=== PATIENT | male | born 1960 | race Two or more races ===

== ENCOUNTER 2024-09-29 17:17 | Emergency (ER) | payer MEDICAID, OTHER ==
[~2024-09-29] VITALS: Ht 185.4 cm; Wt 83.0 kg
[2024-09-29 17:43] LABS: Basophils # (auto) 0 10 ^3/uL (0-0.2); Basophils % (auto) 0.8 % (0.0-2.0); Eosinophils # (auto) 0 10 ^3/uL (0-0.8); Eosinophils % (auto) 0.8 % (0.0-7.0); Hematocrit 44.4 % (41.0-53.0); Lymphocytes # (auto) 1.7 10 ^3/uL (0.4-5.4); Lymphocytes % (auto) 28.1 % (10.0-50.0); Mean Corpuscular Hgb Conc. 33.8 g/dL (32.0-36.0); Mean Corpuscular Volume 94.7 fL (80.0-100.0); Monocytes # (auto) 0.5 10 ^3/uL (0-1.3); Monocytes % (auto) 7.6 % (0.0-12.0); Neutrophils # (auto) 3.9 10 ^3/uL (1.6-8.6); Neutrophils % (auto) 62.7 % (37.0-80.0); Nucleated Red Blood Cells % 0.1 %; Platelet Count (auto) 245 10^3/uL (140-450); Red Blood Cells 4.69 10^6/uL (4.5-5.90); White Blood Cell 6.2 10^3/uL (4.4-10.8)
[2024-09-29 18:06] LABS: Alanine Aminotransferase 40 U/L (7-40); Alkaline Phosphatase 81 U/L (46-116); Anion Gap 7 (5-15); BUN/Creatinine Ratio 22.5 (10.0-20.0); Blood Urea Nitrogen 23 mg/dL (9-23); Carbon Dioxide 29 mmol/L (20-31); Chloride 106 mmol/L (98-107); Glucose 100 mg/dL (74-106); Magnesium 2.3 mg/dL (1.6-2.6); Potassium 4.2 mmol/L (3.5-5.1); Sodium 142 mmol/L (136-145)
[2024-09-29 18:07] LABS: Aspartate Aminotransferase 19 U/L (13-40); Bilirubin, Total 0.5 mg/dL (0.2-1.0); Total Protein 7.1 g/dL (5.7-8.2)
[2024-09-29 18:08] LABS: Albumin 4.9 g/dL (3.2-4.8)
--- NOTE | 2024-09-29 19:10 | DVH ---
CHEST RADIOGRAPH Indication: CP Technique: Single frontal view of the chest was obtained COMPARISON: None FINDINGS: Lines and Tubes: None Lungs: Clear Pleura: No effusion. No pneumothorax. Cardiomediastinal contours: Unremarkable Bones: Unremarkable IMPRESSION: 1. No acute disease.
--- NOTE | 2024-09-29 20:45 | ED.PDOC ---
HPI Comments 63 y.o male presents to the ED for a chief complaint of left sided chest pain associated with SOB, nausea and vomiting that started today. Patient reports waking up with heart burn that progressively worsened and turned into an achy sensation to the left sided chest, non radiating and constant. Patient mentions vomiting multiple times around 1530 with no hematemesis noted. At this time of assessment patient denies CP or sob, nausea or vomiting but still has a mild achy sensation in the LUQ. He denies taking any medication at home. No cardiac history or social history such as tobacco user. Chief Complaint: Chest Pain Time Seen by MD: 20:24 Primary Care Provider: none Reviewed Notes: Nurses Notes, Medications, Allergies Allergies: Coded Allergies: Penicillins (Verified Allergy, Unknown, 09/29/24) Home Meds Active Scripts Acetaminophen (Tylenol Extra Strength) 500 Mg Tab, 1000 MG PO Q6HP PRN, #30 TAB prn pain Prov:PRAVEEN HARMON MD 09/29/24 Omeprazole Magnesium (Omeprazole) 20 Mg Tab, 20 MG PO DAILY, #30 TAB Prov:PRAVEEN HARMON MD 09/29/24 Ondansetron Odt 4MG Tab (ZOFRAN PO) 4 Mg Tb, 4 MG PO TID PRN, #20 TAB prn nausea/vomiting ODT TAB-DISSOLVE IN MOUTH, THEN SWALLOW Prov:PRAVEEN HARMON MD 09/29/24 Information Source: Patient Mode of Arrival: Ambulatory Severity: Moderate Timing: Hours Duration: Since onset Location: Substernal Radiation: No Radiation Quality: Burning, Aching Onset: At Rest Cardiac Risk Factors: None PE Risk Factors: None History of: None Modifying Factors: Nothing Associated Signs and Symptoms: SOB, N/V Past Medical History PAST MEDICAL HISTORY: Thyroid Past Medical History (Other): Wvuokgx-Qtpfx-Uxnxk disease Surgical History: Denies all surgeries Family History Family History: Reviewed,noncontributory to illness, No family hx of Heart ashwini Social History Smoker: Non-Smoker Alcohol: Denies ETOH Use Drugs: Denies Drug Use Lives In: Home Constitutional: denies: chills, diaphoresis, fatigue, fever, malaise, sweats, weakness, others EENTM: denies: blurred vision, double vision, ear bleeding, ear discharge, ear drainage, ear pain, ear ringing, eye pain, eye redness, hearing loss, mouth pain, mouth swelling, nasal discharge, nose bleeding, nose congestion, nose pain, photophobia, tearing, throat pain, throat swelling, voice changes, others Respiratory: reports: SOB at rest, shortness of breath, SOB with excertion; denies: cough, hemoptysis, orthopnea, stridor, wheezing, others Cardiovascular: reports: chest pain; denies: dizzy spells, diaphoresis, Dyspnea on exertion, edema, irregular heart beat, left arm pain, lightheadedness, palpitations, PND, syncope, others Gastrointestinal: reports: nausea, vomiting; denies: abdomen distended, abdominal pain, blood streaked bowels, constipated, diarrhea, dysphagia, difficulty swallowing, hematemesis, melena, poor appetite, poor fluid intake, rectal bleeding, rectal pain, others Genitourinary: denies: burning, dysuria, flank pain, frequency, hematuria, incontinence, penile discharge, penile sore, pain, testicle pain, testicle swelling, urgency, others Neurological: denies: dizziness, fainting, headache, left sided numbness, left sided weakness, numbness, paresthesia, pre-existing deficit, right sided numbness, right sided weakness, seizure, speech problems, tingling, tremors, weakness, others Musculoskeletal: denies: back pain, gout, joint pain, joint swelling, muscle pain, muscle stiffness, neck pain, others Integumetry: denies: bruises, change in color, change in hair/nails, dryness, laceration, lesions, lumps, rash, wounds, others Allergic/Immunocompromised: denies: Difficulty Healing, Frequent Infections, Hives, Itching, others Hematologic/Lymphatic: denies: anemia, blood clots, easy bleeding, easy bruising, swollen glands, others Endocrine: denies: excessive hunger, excessive sweating, excessive thirst, excessive urination, flushing, intolerance to cold, intolerance to heat, unexplained weight gain, unexplained weight loss, others Psychiatric: denies: anxiety, bipolar disorder, depression, hopeless, panic disorder, schizophrenia, sleepless, suicidal, others All Other Systems: Reviewed and Negative Physical Exam General Appearance: No Apparent Distress HEENT: Other (Pupils symmetric, no facial asymmetry, moist mucous membranes) Neck: Full Range of Motion, Normal Inspection Respiratory: Lungs Clear, No Accessory Muscle Use, No Respiratory Distress, Normal Breath Sounds Cardiovascular: No Edema, No JVD, Regular Rate/Rhythm Breast Exam: Deferred Gastrointestinal: Non Tender, Soft Genitalia: Deferred Pelvic: Deferred Rectal: Deferred Extremities: Normal inspection, Normal range of motion, Non-tender, No pedal edema Neurologic: Alert (Oriented x4), Normal Affect, Normal Mood, NOT DONE (Ambulatory without difficulty. No gross focal deficit.) Cerebellar Function: NOT DONE Reflexes: NOT DONE Skin: Dry, Normal Color, Warm Lymphatic: NOT DONE EKG EKG : Comments Sinus rhythm, rate 71, normal intervals, borderline left axis, normal QRS, nonspecific T change. Was a procedure done? Was a procedure done?: No CP Differential Dx Differential Diagnosis: Angina, DC Differential Diagnosis: CHF Differential Diagnosis: Angina, Chest Wall Pain, Cholelithiasis, Costochondritis, Esophageal reflux/spasm, Gastritis, Myocardial Infarction X-Ray, Labs, Meds, VS Vital Signs Date Time Temp Pulse Resp B/P (MAP) Pulse Ox O2 Delivery O2 Flow Rate FiO2 09/29/24 21:45 79 19 97 Room Air* 0 21 09/29/24 21:43 98.1 70 19 137/81 (99) 99 98.1 09/29/24 18:06 68 09/29/24 18:06 68 09/29/24 17:33 99.0 72 17 142/98 (113) 97 09/29/24 17:25 71 Lab Test 09/29/24 20:53 09/29/24 18:33 09/29/24 17:30 Range/Units Troponin I High Sensitivity < 3 L < 3 L < 3 L </=54 ng/L White Blood Count 6.2 4.4-10.8 10^3/uL Red Blood Count 4.69 4.5-5.90 10^6/uL Hemoglobin 15.0 13.5-17.5 g/dL Hematocrit 44.4 41.0-53.0 % Mean Corpuscular Volume 94.7 80.0-100.0 fL Mean Corpuscular Hemoglobin 32.0 28.0-32.0 pg Mean Corpuscular Hemoglobin Concent 33.8 32.0-36.0 g/dL Red Cell Distribution Width 13.0 11.8-14.3 % Platelet Count 245 140-450 10^3/uL Mean Platelet Volume 8.1 6.9-10.8 fL Neutrophils (%) (Auto) 62.7 37.0-80.0 % Lymphocytes (%) (Auto) 28.1 10.0-50.0 % Monocytes (%) (Auto) 7.6 0.0-12.0 % Eosinophils (%) (Auto) 0.8 0.0-7.0 % Basophils (%) (Auto) 0.8 0.0-2.0 % Neutrophils # (Auto) 3.9 1.6-8.6 10 ^3/uL Lymphocytes # (Auto) 1.7 0.4-5.4 10 ^3/uL Monocytes # (Auto) 0.5 0-1.3 10 ^3/uL Eosinophils # (Auto) 0 0-0.8 10 ^3/uL Basophils # (Auto) 0 0-0.2 10 ^3/uL Nucleated Red Blood Cells 0.1 % Sodium Level 142 136-145 mmol/L Potassium Level 4.2 3.5-5.1 mmol/L Chloride Level 106 98-107 mmol/L Carbon Dioxide Level 29 20-31 mmol/L Anion Gap 7 5-15 Blood Urea Nitrogen 23 9-23 mg/dL Creatinine 1.02 0.700-1.30 mg/dL Glomerular Filtration Rate Calc 84 >90 mL/min BUN/Creatinine Ratio 22.5 H 10.0-20.0 Serum Glucose 100 74-106 mg/dL Calcium Level 10.0 8.7-10.4 mg/dL Magnesium Level 2.3 1.6-2.6 mg/dL Total Bilirubin 0.5 0.2-1.0 mg/dL Aspartate Amino Transferase (AST) 19 13-40 U/L Alanine Aminotransferase (ALT) 40 7-40 U/L Alkaline Phosphatase 81 46-116 U/L B-Type Natriuretic Peptide 11.90 0-100 pg/mL Total Protein 7.1 5.7-8.2 g/dL Albumin 4.9 H 3.2-4.8 g/dL Current Medications Medications (Trade) Dose Ordered Sig/Maximino Route Start Time Stop Time Status Last Admin Lidocaine HCl (Xylocaine 2% Viscous) 10 ml ONCE ONCE PO 09/29/24 21:00 09/29/24 21:01 DC 09/29/24 21:43 Belladonna Alkaloids/ Phenobarbital ( Elixir) 10 ml ONCE ONCE PO 09/29/24 21:00 09/29/24 21:01 DC 09/29/24 21:42 Al Hydrox/Mg Hydrox/Simethicone (Maalox Plus) 30 ml ONCE ONCE PO 09/29/24 21:00 09/29/24 21:01 DC 09/29/24 21:42 PROCEDURE(s): CXRP - CHEST PORTABLE REASON: CP ORDER NUMBER(s): [id number], ACCESSION NUMBER(s): [id number] CHEST RADIOGRAPH Indication: CP Technique: Single frontal view of the chest was obtained COMPARISON: None FINDINGS: Lines and Tubes: None Lungs: Clear Pleura: No effusion. No pneumothorax. Cardiomediastinal contours: Unremarkable Bones: Unremarkable IMPRESSION: 1. No acute disease. 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 EKGs sinus rhythm, nonspecific T changes Chest x-ray unremarkable CBC, metabolic panel, BNP and 2 serial troponins unremarkable for any abnormality of acute significance Patient treated with the following in the ED: 1 L 0.9 normal saline IV bolus, Zofran 4 mg IV, viscous lidocaine 10 mL p.o., 10 mL p.o., Maalox 30 mL p.o. On re-evaluation, patient states nausea and pain have resolved. Vitals were stable. Hospitalization was considered, however patient had rapid improvement of his symptoms with treatment in the ED, cardiac workup is unremarkable, and I no longer feel hospitalization is necessary. Patient now per stable for discharge with close outpatient follow up with his primary physician for referral to a director of strategic sourcing. Rx Zofran, omeprazole Time of 1ST Reevaluation: 20:41 Reevaluation 1ST: Unchanged Time of 2ND Reevaluation: 21:11 Reevaluation 2ND: Improved Patient Education/Counseling: Diagnosis, Treatment, Prognosis Family Education/Counseling: No Family Present Departure 1 Departure Time of Disposition: 21:11 Impression: Primary Impression: Chest pain with low risk for cardiac etiology Additional Impressions: Nausea and vomiting Qualified Codes: R11.2 - Nausea with vomiting, unspecified Acid reflux Qualified Codes: K21.9 - Gastro-esophageal reflux disease without esophagitis Disposition: HOME / SELF CARE / HOMELESS Condition: Stable Additional Instructions: Your blood tests, including screening test for heart attack and heart failure were unremarkable. Your chest x-ray was normal. Your EKG was unremarkable. I have prescribed medication for your symptoms. Follow up with your primary doctor in 1-2 days for referral to a director of strategic sourcing for further evaluation. e-Prescriptions Acetaminophen (Tylenol Extra Strength) 500 Mg Tab 1000 MG PO Q6HP PRN, #30 TAB prn pain Prov: PRAVEEN HARMON MD 09/29/24 Omeprazole Magnesium (Omeprazole) 20 Mg Tab 20 MG PO DAILY, #30 TAB Prov: PRAVEEN HARMON MD 09/29/24 Ondansetron Odt 4MG Tab (ZOFRAN PO) 4 Mg Tb 4 MG PO TID PRN, #20 TAB prn nausea/vomiting ODT TAB-DISSOLVE IN MOUTH, THEN SWALLOW Prov: PRAVEEN HARMON MD 09/29/24 Discharged With: Spouse Critical Care Note Critical Care Time?: No Stability Stability form required: No Heart Score Heart Score: Heart Score Response (Comments) Value History Slightly Suspicious 0 EKG Repolarization Disturb 1 Age 45-64 1 Risk Factors No known risk factors 0 Troponin Normal limit 0 Total 2 I personally scribed for PRAVEEN HARMON MD ([facility]) on 09/29/24 at 20:44. Electronically submitted by Shamika Giang ([facility]). I personally scribed for PRAVEEN HARMON MD ([facility]) on 09/29/24 at 21:47. Electronically submitted by Shamika Giang ([facility]). PRAVEEN HARMON MD Sep 29, 2024 20:44
[2024-09-29] MEDS ORDERED: ACET-1304 PO (21:15)
[2024-09-29] MEDS ORDERED: ZOFR4T PO (21:15)
[2024-09-29] MEDS ORDERED: OMEP-434 PO (21:15)
[2024-09-29] MEDS: ONDANSETRON HCL 4 MG/2 ML VIAL IV ONE (21:38)
[2024-09-29] MEDS: SODIUM CHLORIDE 0.9% 1,000 ML IV ONE (21:38)
[2024-09-29] MEDS: DONNATAL 5ml ORAL Elix (BELLADONNA ALK-PHENOBARB) PO ONE (21:42)
[2024-09-29] MEDS: MAALOX PLUS or MAALOX 30 ML PO ONE (21:42)
[2024-09-29 21:43] VITALS: BP 137/81; TEMP 98.1
[2024-09-29] MEDS: LIDOCAINE VISCOUS 2% 15ML UD PO ONE (21:43)
[2024-09-29 21:45] VITALS: PULSE 79; RESP 19; O2SAT 97
--- NOTE | 2024-09-30 01:37 | ECG ---
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
== END 2024-09-29 21:53 | disposition home or self-care (01) ==
LOC: ER 17:17
DX: R07.89 Other chest pain (principal); R11.2 Nausea with vomiting, unspecified; K21.9 Gastro-esophageal reflux disease without esophagitis; E03.9 Hypothyroidism, unspecified; Z88.0 Allergy status to penicillin; Z79.899 Other long term (current) drug therapy
CPT/HCPCS: 36415; 71045; 80053; 83735; 83880; 84484; 85025; 93005